=== PATIENT | female | born 1950 | race Caucasian/White ===

== ENCOUNTER 2019-03-02 07:27 | Day surgery (SDC) | payer OTHER ==
[~2019-03-02] VITALS: Ht 162.6 cm; Wt 74.1 kg
[2019-03-02 09:51] VITALS: BP 116/64; Ht 162.6 cm; Wt 74.1 kg
[2019-03-02] MEDS ORDERED: ELIQUIS5 MG PO (09:53)
[2019-03-02] MEDS ORDERED: LEVOTHYROXINE50 MCG PO (09:53)
[2019-03-02] MEDS ORDERED: ALBUTEROL SULF8.5 GM INH (09:54)
[2019-03-02] MEDS ORDERED: FOLATE0.4 MG PO (09:55)
--- NOTE | 2019-03-02 14:01 | OP ---
PATIENT NAME: LOUISE MICHELLE MEDICAL RECORD: [id number] :48 [facility] DATE: SURGEON: PHILIP MORRIS DO DATE OF OPERATION: 03/02/2019 PROCEDURE: Colonoscopy with polypectomy and biopsies. INDICATIONS FOR PROCEDURE: Occult blood positive stools, diarrhea, generalized abdominal pain, abnormal weight loss. SCOPE: Olympus video pediatric colonoscope. MEDICATIONS: Propofol 550 mg IV per anesthesia. WITHDRAWAL TIME: 32 minutes. ESTIMATED BLOOD LOSS: Less than 2 mL. COMPLICATIONS: None immediate. FINDINGS: Informed consent was given. The patient was made comfortable with the above medication. After reaching an adequate level of sedation by slow IV push, the patient was placed on her left side. A digital rectal examination was performed and it was normal. The endoscope was then advanced under direct visualization through the rectum to the cecum, confirmed by the presence of the appendiceal orifice and ileocecal valve. The endoscope was slowly withdrawn and the mucosa was carefully examined. The prep quality was good. In the cecum, there were 2 separate large polyps. They were both sessile in appearance. One measured approximately 1 cm and the other was approximately 2 to 2.5 cm x 1.5 cm in size. The larger of the 2 polyps had features that are somewhat concerning for possible malignancy. The inside of the polyp was cratered in slightly. Multiple cold forceps biopsies were taken from the center of the largest polyps. The polyp was not removed at this time for 2 reasons. The first being that the surrounding mucosa was very hemorrhagic in nature. It is undetermined what this hemorrhagic appearance is due to, but appearances are consistent with barotrauma just from insufflation of the colon with the endoscope. It is undetermined if there is a colitis as well and the patient's coagulopathy studies are not known at this time. For that reason, biopsies were taken and will be followed to determine appropriate management moving forward. If this is a high-grade dysplastic polyp or has cancerous cells present, this will require resection. The second polyp, which is approximately 1 cm was also not removed at this time as it can be managed along with the other polyp or will be involved with the resection due to its location. Just distal to these polyps, there was a smaller benign appearing sessile polyp, which was approximately 2-3 cm in diameter. It was removed using hot forceps. Multiple cold forceps biopsies were taken from the hemorrhagic mucosa to rule out the presence of colitis and to further characterize the endoscopic appearances. After biopsies were taken from the hemorrhagic mucosa, there was a site that was bleeding and not stopping spontaneously, so a single endoclip was placed over this site successfully for hemostasis. Random colon biopsies were taken of the mucosa that was nonhemorrhagic, which started approximately in the distal ascending colon and transverse colon. These were taken to rule out the presence of microscopic colitis. On the ileocecal valve, there was another polyp, which measured approximately 8 mm in diameter. It was removed using hot forceps in a piecemeal fashion and completely fulgurated. In the transverse colon, there were two OPERATIVE REPORT [id number] MICHELLE,LOUISE separate polyps, which were sessile and measured approximately 6-8 mm in diameter. They were both removed using hot snare in 1 piece and completely retrieved. In the descending colon, there was another polyp, which was benign appearing and sessile and measured approximately 7 mm in diameter. It was removed using hot snare in 1 piece and completely retrieved. There was evidence of mild diverticulosis involving the descending and sigmoid colon. Retroflexion was not performed in the rectum due to a small rectal wall, but there did appear to be some internal hemorrhoids on forward view upon withdrawal. The endoscope was completely withdrawn from the patient. The patient tolerated the procedure well and there were no complications. IMPRESSION: 1. Large cecal polyp as described above, which is remaining in the colon at this time. Biopsies were taken to determine if there is high-grade dysplasia or if this is simply an adenomatous polyp to determine further course of action of treatment and management. There was another cecal polyp, which was not removed as it will be managed at the time of the other larger polyp. 2. There was also an ileocecal valve polyp, 2 transverse colon polyps, and 1 descending colon polyp. All of these polyps were removed using a combination of hot snare and hot forceps. 3. Extensive hemorrhagic mucosa in the cecum and ascending colon. Appearances were consistent with barotrauma from insufflation with the colonoscope, but biopsies were taken to rule out other etiologies. As stated above, the patient's coagulation studies are not known and she does take Eliquis for her blood thinner, although she has been off of this for a number of days. 4. Mild diverticulosis of the descending and sigmoid colon. 5. Internal hemorrhoids. 6. Stool studies and random biopsies performed during this examination. The stool will be sent for an xTAG. PLAN AND RECOMMENDATIONS: 1. Discharge home when recovery parameters are met. 2. Follow up biopsy specimen results. 3. High fiber diet. 4. Continue current medications. 5. Cholestyramine 4 grams b.i.d. for diarrhea while awaiting biopsy results and further management. 6. We will refer to Dr. Ladd for management of the cecal polyps. This may require endoscopic removal and APC therapy or surgical resection, pending biopsy results. 7. Recall colonoscopy will be dependent on further management moving forward. TRANSINT:[id number] Voice Confirmation ID: [id number] DOCUMENT ID: [id number] PHILIP MORRIS DO at 1401 CC: [id number] DICTATION DATE: 03/02/19 1123 SANITOR: 03/02/19 1231 [facility] [address] [place] [address]
== END 2019-03-02 12:15 | disposition home or self-care (01) ==
LOC: D.OPS 07:27
PROVIDERS: ATTEND Internal Medicine Gastroenterology
DX: D12.0 Benign neoplasm of cecum (principal); D12.4 Benign neoplasm of descending colon; D12.3 Benign neoplasm of transverse colon; K57.30 Diverticulosis of large intestine without perforation or abscess without bleeding; K64.8 Other hemorrhoids; Z01.812 Encounter for preprocedural laboratory examination